=== PATIENT | female | born 1955 | race Caucasian/White ===

== ENCOUNTER 2020-10-31 10:11 | Outpatient (CLI) | payer MEDICARE, MEDICAID, SELFPAY | END 2020-10-31 10:12 | disposition home or self-care (01) | LOC: ANHAUDIO 10:13 | PROVIDERS: PCP Internal Medicine Gastroenterology; Referring Provider Internal Medicine Gastroenterology; Visit Provider Internal Medicine Gastroenterology | DX: H90.3 Sensorineural hearing loss, bilateral (principal) | CPT/HCPCS: 92557; 92567 ==